=== PATIENT | male | born 1975 | race Caucasian/White ===

== ENCOUNTER 2023-08-03 15:44 | Emergency (ER) | payer OTHER ==
[~2023-08-03] VITALS: Ht 177.8 cm; Wt 86.2 kg
[2023-08-03 17:26] VITALS: BP 138/78; TEMP 98; O2SAT 97
== END 2023-08-03 17:27 | disposition home or self-care (01) ==
LOC: ER 15:52
DX: H61.22 Impacted cerumen, left ear (principal)